=== PATIENT | male | born 2000 | race Caucasian/White ===

== ENCOUNTER 2021-05-07 16:58 | Inpatient (IN) ==
[2021-05-07 17:43] LABS: Basophils # 0.1 K/mcL (0.0-0.2); Basophils % 1.3 %; Eosinophils # 0.4 K/mcL (0.0-0.6); Eosinophils % 4.4 %; Hematocrit 42.9 % (37.5-50.1); Immature Granulocytes % 2.2 % (0-4); Lymphocytes # 3.2 K/mcL (0.6-4.6); Lymphocytes % 37.5 %; Mean Corpuscular Hemoglobin 28.8 pg (28.0-33.3); Mean Corpuscular Volume 82.3 fL (83.0-100.0); Mean Platelet Volume 11.2 fL (9.4-12.4); Monocytes # 0.8 K/mcL (0.0-1.3); Neutrophils # 3.9 K/mcL (1.6-8.9); Platelet Count 236 K/mcL (140-400); Red Blood Count 5.21 M/mcL (4.19-5.50); Segmented Neutrophils % 45.6 %; White Blood Count 8.6 K/mcL (4.3-11.1)
[2021-05-07 17:49] LABS: Bilirubin,Urine Negative (Negative); Blood,Urine Negative (Negative); Clarity,Urine Clear (Clear); Color,Urine Colorless (Yellow); Glucose,Urine (UA) Normal (Normal); Ketones,Urine Negative (Negative); Leukocyte Esterase,Urine Negative (Negative); Nitrite,Urine Negative (Negative); PH,Urine 7.5 pH Units (5.0-8.0); Protein,Urine Negative (Neg-Trace); Specific Gravity,Urine 1.009 (1.010-1.025); Urobilinogen,Urine Normal (Normal)
[2021-05-07 17:59] LABS: Amphetamine Screen,Urine Negative ng/mL (Cutoff=1000); Barbiturate Screen,Urine Negative ng/mL (Cutoff=200); Benzodiazepines Screen,Urine Negative ng/mL (Cutoff=200); Cannabinoid Screen,Urine Negative ng/mL (Cutoff = 50); Cocaine Screen,Urine Negative ng/mL (Cutoff= 300); Opiate Screen,Urine Negative ng/mL (Cutoff=300); Phencyclidine Screen,Urine Negative ng/mL (Cutoff=25)
[2021-05-07 18:19] LABS: Acetaminophen < 10 mcg/mL (10-20); BUN/Creatinine Ratio 9 (6-26); Blood Urea Nitrogen 12 mg/dL (6-20); Calcium 9.7 mg/dL (8.6-10.3); Carbon Dioxide 27 mEq/L (23-29); Chloride 105 mEq/L (98-107); Glucose 93 mg/dL (70-105); Osmolality,Calculated 285 (280-300); Potassium 3.8 mEq/L (3.5-5.1); Salicylate < 2.5 mg/dL (15.0-30.0); Sodium 138 mEq/L (136-145); eGFR For African Americans > 60; eGFR For Non-African Americans > 60
[2021-05-07 18:37] LABS: Ethanol < 10 mg/dL (Less than 10)
[2021-05-07 21:56] LABS: Adenovirus Not Detected (Not Detect); Bordetella Pertussis Not Detected (Not Detect); Chlamydophila pneumoniae Not Detected (Not Detect); Coronavirus 229E Not Detected (Not Detect); Coronavirus HKU1 Not Detected (Not Detect); Coronavirus NL63 Not Detected (Not Detect); Coronavirus OC43 Not Detected (Not Detect); Human Metapneumovirus Not Detected (Not Detect); Human Rhinovirus/Enterovirus Not Detected (Not Detect); Influenza A Subtype 2009 H1 Not Detected (Not Detect); Influenza B Not Detected (Not Detect); Mycoplasma pneumoniae Not Detected (Not Detect); Parainfluenza Virus 1 Not Detected (Not Detect); Parainfluenza Virus 2 Not Detected (Not Detect); Parainfluenza Virus 3 Not Detected (Not Detect); Parainfluenza Virus 4 Not Detected (Not Detect); Respiratory Syncytial Virus Not Detected (Not Detect); SARS-CoV-2 Not Detected (Not Detect)
[2021-05-07] MEDS ORDERED: *HR* LORazepam 1 MG TABLET PO PRN (22:00)
[2021-05-07] MEDS ORDERED: haloperidoL 5 MG TABLET PO PRN (22:00)
[2021-05-07] MEDS ORDERED: *HR* LORazepam 2 MG/ML VIAL IM PRN (22:00)
[2021-05-07] MEDS ORDERED: Acetaminophen 325 MG TABLET PO PRN (22:00)
[2021-05-07] MEDS ORDERED: Haloperidol Lactate 5 MG/ML VIAL IM PRN (22:00)
[2021-05-07] MEDS ORDERED: traZODone 50 MG TABLET PO PRN (22:00)
[2021-05-07] MEDS: hydrOXYzine pamoate 25 MG CAPSULE PO PRN (23:11)
[2021-05-07] MEDS: Nicotine 2 MG GUM BC PRN (23:21)
[2021-05-08] MEDS ORDERED: MOM Conc 10 ML UD.LIQ PO PRN (08:33)
[2021-05-08] MEDS ORDERED: Mag Hydrox/Al Hydrox/Simeth 30 ML UDC PO PRN (08:33)
[2021-05-08] MEDS: Nicotine 2 MG GUM BC PRN (18:07)
[2021-05-08] MEDS ORDERED: QUEtiapine Fumarate 100 MG TABLET PO SCH (21:00)
[2021-05-09] MEDS: Nicotine 2 MG GUM BC PRN (14:00)
[2021-05-09] MEDS: hydrOXYzine pamoate 25 MG CAPSULE PO PRN (20:23)
[2021-05-09] MEDS ORDERED: QUEtiapine Fumarate 25 MG TABLET PO SCH (21:00)
[2021-05-09] MEDS ORDERED: QUEtiapine Fumarate 100 MG TABLET PO SCH (21:00)
[2021-05-10] MEDS: Nicotine 2 MG GUM BC PRN (13:28)
[2021-05-10] MEDS: hydrOXYzine pamoate 25 MG CAPSULE PO PRN ×2 (15:40→20:22)
[2021-05-10] MEDS ORDERED: QUEtiapine Fumarate 100 MG TABLET PO SCH (21:00)
[2021-05-11] MEDS: Nicotine 21 MG PATCH.TD24 TD SCH (09:51)
[2021-05-11] MEDS ORDERED: QUEtiapine Fumarate 300 MG TABLET PO SCH (21:00)
[2021-05-12] MEDS: Nicotine 21 MG PATCH.TD24 TD SCH (09:47)
[2021-05-12 20:53] VITALS: TEMP 98
[2021-05-12] MEDS ORDERED: QUEtiapine Fumarate 100 MG TABLET PO SCH (21:00)
[2021-05-13 08:00] VITALS: BP 108/68; PULSE 66; O2SAT 97
[2021-05-13] MEDS: Nicotine 21 MG PATCH.TD24 TD SCH (08:26)
== END 2021-05-13 14:35 | DRG 885 ==
LOC: EMEROOARM 16:58 → 1ANU 22:10 → SUATTDRO 22:10 → 1ANU 22:54
PROVIDERS: ADMIT Psychiatry & Neurology Psychiatry; ATTEND Psychiatry & Neurology Psychiatry